=== PATIENT | male | born 1955 | race Caucasian/White ===

== ENCOUNTER 2017-01-31 11:51 | Emergency (ER) | payer OTHER ==
[2017-01-31 11:58] VITALS: BP 133/85; PULSE 85; RESP 16; TEMP 98.2; O2SAT 90
[2017-01-31] MEDS ORDERED: AMOXICILLIN/CLAVULANATE POT 875/125 MG TAB PO ONE (12:00)
--- NOTE | 2017-01-31 12:06 | EDPHY ---
H & P Stated Complaint: DOG BITE R FA HPI/ROS: Chief complaint: Dog bite to right forearm History of present illness: This is a 61-year-old male who presents to the emergency department for a dog bite to his right arm. Just prior to arrival an unknown dog bit his right arm. Supervisor [employer] reported dog as healthy. Patient reports wounds to his distal right forearm. Minimal pain. Minimal bleeding. He denies associated signs or symptoms: No difficulty moving the right upper extremity, no abnormal coolness or warmth in the right upper extremity, no paresthesias. Patient's tetanus is up-to-date. - Personal History Current Tetanus/Diphtheria Vaccine: Yes - Medical/Surgical History Hx Asthma: No Hx Chronic Respiratory Disease: No Hx Diabetes: No Hx Cardiac Disease: No Hx Renal Disease: No Hx Cirrhosis: No Hx Alcoholism: No Hx HIV/AIDS: No Hx Splenectomy or Spleen Trauma: No - Social History Smoking Status: Current every day smoker - Physical Exam Exam: General: Alert, nontoxic Skin: 2 puncture wounds to the dorsal aspect of the distal right forearm and a 2 cm laceration to the ventral aspect. No foreign body contamination appreciated. Musculoskeletal: Patient moving all digits in all kinney in all joints in the right hand, is moving the wrist in all kinney and the elbow in all kinney without difficulty and good strength. Vascular: Radial pulses 2+. Capillary refill brisk in all digits of the right hand. Neurologic: Sensation appears intact in all aspects of the right upper extremity. Constitutional: Initial Vital Signs Temperature (C) 36.8 C 01/31/17 11:57 Heart Rate 85 01/31/17 11:57 Respiratory Rate 16 01/31/17 11:57 Blood Pressure 133/85 H 01/31/17 11:57 O2 Sat (%) 90 L 01/31/17 11:57 O2 Delivery Mode Room Air Allergies/Adverse Reactions: No Known Allergies Allergy (Unverified 04/25/12 18:26) Home Medications: Medication Instructions Recorded Complete By Pharmacy 08/10/12 morphINE SR [MS Contin/Oramorph SR 30 mg PO BID 08/10/12 30 mg (RX)] Amoxicillin/Clavulanate Pot 875 mg PO BID #14 tab 01/31/17 [Augmentin 875 MG TAB (*)] Medical Decision Making ED Course/Re-evaluation: Patient seen under the supervision of my secondary supervising physician Dr. Mahesh Mayberry. Patient presented to the emergency department for evaluation of a dog bite to his right distal forearm. The upper extremity is neurovascularly intact. He has good musculoskeletal control of the upper extremity. I have offered an x-ray to rule on deeper injury or foreign body contamination but he has declined. Given this is an animal bite I do not want to primarily close the laceration. It is cleaned and approximated with a Steri- Strip. He is told he can return in 3-5 days for delayed primary closure or allowed it to heal by secondary intention. He is referred to hand surgery for recheck. I will place him on a course of antibiotics. Home care is discussed. Return precautions are given. Patient voiced understanding and agreement with plan. Differential Diagnosis: Included but not limited to soft tissue injury from by, deep structure injury, foreign body contamination - Data Points Medications Given: Discontinued Medications Amoxicillin/Clavulanate Potassium (Augmentin 875mg) 875 mg PO EDNOW ONE PRN Reason: Protocol Stop: 01/31/17 12:01 Last Admin: 01/31/17 12:14 Dose: 875 mg Departure - Departure Disposition: Home, Routine, Self-Care Clinical Impression: Dog bite Qualifiers: Encounter type: initial encounter Qualified Code(s): W54.0XXA - Bitten by dog, initial encounter Condition: Good Instructions: Animal Bite (ED) Additional Instructions: Follow up with a primary care doctor for recheck Keep wound clean with soap and water and apply a dressing multiple times daily. You can return to the emergency room in 72 hours for delayed primary closure or allow it to close by secondary intention as discussed. You were offered x-rays today, you declined If symptoms worsen or new symptoms develop return to the emergency room for recheck Referrals: NONE *PRIMARY CARE P,. [Primary Care Provider] - As per Instructions Dav Garrison MD [Medical Doctor] - As per Instructions Prescriptions: Amoxicillin/Clavulanate Pot [Augmentin 875 MG TAB (*)] 875 mg PO BID #14 tab
== END 2017-01-31 12:52 | disposition home or self-care (01) ==
LOC: EDUNIT#
DX: S51.851A Open bite of right forearm, initial encounter (principal); F17.200 Nicotine dependence, unspecified, uncomplicated; W54.0XXA Bitten by dog, initial encounter